=== PATIENT | female | born 1960 | race African-American/Black ===

== ENCOUNTER 2017-06-09 09:36 | Emergency (ER) | payer OTHER ==
[2017-06-09] MEDS ORDERED: MORPHINE SULFATE 4 MG/ML DISP.SYRIN. IV/SQ (10:00)
[2017-06-09] MEDS ORDERED: MORPHINE SULFATE 4 MG/ML DISP.SYRIN. (10:03)
[2017-06-09] MEDS: ORPHENADRINE CITRATE 60 MG/2 ML VIAL. IM (10:10)
[2017-06-09] MEDS: MORPHINE SULFATE 4 MG/ML DISP.SYRIN. IM (10:29)
== END 2017-06-09 12:30 | disposition home or self-care (01) ==
LOC: ER 09:36
DX: M62.838 Other muscle spasm (principal); E11.9 Type 2 diabetes mellitus without complications; I10 Essential (primary) hypertension
CPT/HCPCS: 93005; 96372; 99284-25; J2270; J2360

== ENCOUNTER 2020-06-30 17:23 | Emergency (ER) | payer SELFPAY ==
[~2020-06-30] VITALS: Ht 162.6 cm; Wt 97.0 kg
[~2020-06-30 17:23] MED LIST: ASPI-482 PO; ATEN100T PO; CHOL10003 PO; LISI1TAB20 PO; METF10007 PO; ORPH100T PO
[2020-06-30 17:50] LABS: BILIRUBIN,URINE NEGATIVE (NEG); CLARITY,URINE TURBID; COLOR,URINE YELLOW; NITRITE,URINE NEGATIVE (NEG); PROTEIN,URINE 100 mg/dL (NEG-TRACE)
[2020-06-30 18:09] LABS: AMORPHOUS SEDIMENT,UR PRESENT /HPF; BACTERIA,URINE MODERATE /HPF (0-FEW); WBC,URINE >40 /HPF (0-4)
[2020-06-30] MEDS ORDERED: IV NORMAL SALINE 1000ML BAG 1,000 ML IV SCH (18:30)
[2020-06-30] MEDS ORDERED: cefTRIAXone IV Push 1 GM VIAL. IVP ONE (18:30)
--- NOTE | 2020-06-30 18:34 | PHYS DOC ---
Past Medical History Past Medical History: Diabetes-Type II, Hypertension, Hypothyroid, Kidney Stone Past Surgical History: Other Additional Past Surgical Histo: right wrist cyst; partial thyroidectomy Smoking Status: Never Smoker Alcohol Use: None Drug Use: None General Adult EDM: Chief Complaint: PAIN ON URINATION HPI: HPI: Patient is a 60 year old female who presents with states a couple days ago began having abdominal burning with urination and pain and urinary frequency and dribbling of urine. She states she has no pain until she is trying to urinate. She states when she wiped she saw some pink on the toilet paper. Patient states that she broke out into a sweat a couple of times yesterday. Patient denies nausea, vomiting, diarrhea, fever, back pain, headache, dizziness, fall, con stipation, body aches, chest pain, shortness of air, visual changes or focal weaknesses. Patient has a history of diabetes, hypertension, high cholesterol, kidney stone, right wrist cyst, partial thyroidectomy. Right now denies any pain. Review of Systems: Review of Systems: Constitutional: Denies fever or chills. [] Eyes: Denies change in visual acuity. [] HENT: Denies nasal congestion or sore throat. [] Respiratory: Denies cough or shortness of breath. [] Cardiovascular: Denies chest pain or edema. [] GI: + Low mid abdominal pain urination, denies nausea, vomiting, bloody stools or diarrhea. [] : + dysuria. [] Musculoskeletal: Denies back pain or joint pain. [] Integument: Denies rash. + Cold sweats [] Neurologic: Denies headache, focal weakness or sensory changes. [] Endocrine: Denies polyuria or polydipsia. [] Lymphatic: Denies swollen glands. [] Psychiatric: Denies depression or anxiety. [] Heart Score: Risk Factors: Risk Factors: DM, Current or recent (<one month) smoker, HTN, HLP, family history of CAD, obesity. Risk Scores: Score 0 - 3: 2.5% MACE over next 6 weeks - Discharge Home Score 4 - 6: 20.3% MACE over next 6 weeks - Admit for Clinical Observation Score 7 - 10: 72.7% MACE over next 6 weeks - Early Invasive Strategies Current Medications: Current Medications Medications (Trade) Dose Ordered Sig/Santi Start Time Stop Time Status Last Admin Dose Admin Ceftriaxone Sodium (Rocephin) 1 gm 1X ONCE 06/30/20 18:30 06/30/20 18:31 Sodium Chloride 1,000 ml @ 1,000 mls/hr Q1H 06/30/20 18:30 06/30/20 19:29 Allergies: Allergies: Allergies Coded Allergies Type Severity Reaction Last Updated Verified No Known Drug Allergies 08/24/14 No Physical Exam: PE: Constitutional: Well developed, well nourished, no acute distress, non-toxic appearance. [] HENT: Normocephalic, atraumatic, bilateral external ears normal, oropharynx moist, no oral exudates, nose normal. [] Eyes: PERRLA, EOMI, conjunctiva normal, no discharge. [] Neck: Normal range of motion, no tenderness, supple, no stridor. [] Cardiovascular:Heart rate regular rhythm, no murmur [] Lungs & Thorax: Bilateral breath sounds clear to auscultation [] Abdomen: Bowel sounds normal, soft, no tenderness, no masses, no pulsatile masses. [] Skin: Warm, dry, no erythema, no rash. [] Back: No tenderness, no CVA tenderness. [] Extremities: No tenderness, no cyanosis, no clubbing, ROM intact, no edema. [] Neurologic: Alert and oriented X 3, normal motor function, normal sensory function, no focal deficits noted. [] Psychologic: Affect normal, judgement normal, mood normal. Normal physical exam [] Current Patient Data: Labs: Laboratory Tests Test 06/30/20 17:30 Urine Collection Type Unknown Urine Color Yellow Urine Clarity Turbid Urine pH 7.0 (<5.0-8.0) Urine Specific [place] 1.025 (1.000-1.030) Urine Protein 100 mg/dL (NEG-TRACE) Urine Glucose (UA) Negative mg/dL (NEG) Urine Ketones (Stick) Trace mg/dL (NEG) Urine Blood Large (NEG) Urine Nitrite Negative (NEG) Urine Bilirubin Negative (NEG) Urine Urobilinogen Dipstick 1.0 mg/dL (0.2 mg/dL) Urine Leukocyte Esterase Large (NEG) Urine RBC 3-5 /HPF (0-2) Urine WBC >40 /HPF (0-4) Urine Squamous Epithelial Cells Mod /LPF Urine Amorphous Sediment Present /HPF Urine Bacteria Moderate /HPF (0-FEW) Urine Mucus Slight /LPF Vital Signs: Vital Signs Date Time Temp Pulse Resp B/P (MAP) Pulse Ox O2 Delivery O2 Flow Rate FiO2 06/30/20 17:30 97.8 76 16 172/86 (114) 99 Room Air 97.8 EKG: EKG: [] Radiology/Procedures: Radiology/Procedures: [] Impression: [facility] [address] [place] [address] IMAGING REPORT Signed PATIENT: KRISTY ARMSTRONG ACCOUNT: [id number] : 1960 LOCATION: ER AGE: 60 SEX: F EXAM STATUS: REG ER ORD. PHYSICIAN: REBECA CAMPOS APRN REASON: UTI, HISTORY KIDNEY STONE, ABD PAIN PROCEDURE: CT ABDOMEN PELVIS WO CONTRAST EXAM: CT Abdomen and Pelvis without IV contrast CLINICAL HISTORY: UTI, HISTORY KIDNEY STONE, ABD PAIN COMPARISON: 04/16/2015 TECHNIQUE: Helical CT of the abdomen and pelvis without intravenous contrast. Axial, coronal and sagittal reformatted images were generated. PQRS compliance statement - One or more of the following individualized dose reduction techniques were utilized for this study: 1. Automated exposure control 2. Adjustment of the mA and/or kV according to patient size 3. Use of iterative reconstruction technique FINDINGS: Lack of intravenous contrast limits evaluation of solid organs, vasculature, and lymph nodes. Lower chest: Linear opacities in lower lobes likely scarring/atelectasis. Abdomen and Pelvis: Liver is enlarged measuring 21 cm in length. Gallbladder is unremarkable. Pancreas, spleen and right adrenal gland is unremarkable. Left adrenal nodule is grossly stable. No focal renal lesion. No hydronephrosis. No hydroureter. Diffuse bladder wall thickening and associated infiltration, likely cystitis. Appendix is normal. Colonic stool content is seen. No small or large bowel dilatation. No bowel obstruction. Bones: Symphysis pubis and SI joint degenerative changes are seen with subchondral sclerosis. Degenerative changes of lower lumbar spine are also seen. Grade 1 anterolisthesis of L4 on L5, likely degenerative. IMPRESSION: 1. Diffuse bladder wall thickening and infiltration likely cystitis and can be correlated with urinalysis. 2. Hepatomegaly. 3. Multifocal degenerative changes of the lumbar spine and pelvis. 4. Moderate colonic stool content. No bowel obstruction. Electronically signed by: Mejia Chew MD (06/30/2020 7:26 PM) [facility] DICTATED and SIGNED BY: MEJIA CHEW MD DATE: 06/30/20 [id number] 0 Course & Med Decision Making: Course & Med Decision Making Pertinent Labs and Imaging studies reviewed. (See chart for details) See HPI. Abdomen soft nontender. No CVA tenderness. Ambulatory with a steady gait. Skin pink warm and dry. Alert and oriented x4. Speaks in full clear sentences. Afebrile. Urinalysis shows infection. Patient will be given Rocephin through an IV and IV fluids. Blood work is stable. Patient will be placed on Keflex and she can follow-up with her primary care provider soon as possible. [] Dragon Disclaimer: Dragon Disclaimer: This electronic medical record was generated, in whole or in part, using a voice recognition dictation system. Departure Departure Impression: Primary Impression: Urinary tract infection Qualified Codes: N30.01 - Acute cystitis with hematuria Additional Impression: Constipation Qualified Codes: K59.00 - Constipation, unspecified Disposition: DC HOME SELF CARE/HOMELESS Condition: STABLE Referrals: NO PCP (PCP) Patient Instructions: Constipation, Adult, Urinary Tract Infection Additional Instructions: Follow up with primary care provider soon as possible. Drink plenty of fluids. Take medication with food and as prescribed. If Began running a fever or cannot keep any fluids down return sooner. Scripts Phenazopyridine Hcl (PYRIDIUM) 100 Mg Tablet 1 TAB PO TID for urinary discomfort for 3 Days, #9 TAB 0 Refills Prov: [facility] 06/30/20 Cephalexin (CEPHALEXIN) 500 Mg Capsule 1 CAP PO BID, #20 CAP Prov: [facility] 06/30/20 REBECA CAMPOS APRN Jun 30, 2020 18:34
[2020-06-30 18:43] LABS: BASO % 1 % (0-3); EOS # 0.1 x10^3/uL (0.0-0.7); EOS % 2 % (0-3); HEMATOCRIT 35.1 % (36.0-47.0); HEMOGLOBIN 12.2 g/dL (12.0-15.5); LYMPH # 1.3 x10^3/uL (1.0-4.8); LYMPH % 24 % (24-48); MEAN CORPUSCULAR HEMOGLOBIN 32 pg (25-35); MEAN CORPUSCULAR HGB CONC 35 g/dL (31-37); MEAN CORPUSCULAR VOLUME 91 fL (79-100); MONO # 0.4 x10^3/uL (0.0-1.1); MONO % 7 % (0-9); NEUT # 3.6 x10^3/uL (1.8-7.7); NEUT % 67 % (31-73); PLATELET COUNT 305 x10^3/uL (140-400); RED BLOOD COUNT 3.86 x10^6/uL (3.50-5.40); RED CELL DISTRIBUTION WIDTH 13.1 % (11.5-14.5); WHITE BLOOD COUNT 5.4 x10^3/uL (4.0-11.0)
[2020-06-30 18:53] LABS: CALCIUM 8.8 mg/dL (8.5-10.1); CREATININE 0.8 mg/dL (0.6-1.0); GFR 88.2; POTASSIUM 3.2 mmol/L (3.5-5.1)
[2020-06-30 18:59] LABS: ALBUMIN 2.9 g/dL (3.4-5.0); ALBUMIN/GLOBULIN RATIO 0.6 (1.0-1.7); TOTAL BILIRUBIN 0.3 mg/dL (0.2-1.0); TOTAL PROTEIN 7.4 g/dL (6.4-8.2)
--- NOTE | 2020-06-30 19:28 | RAD ---
EXAM: CT Abdomen and Pelvis without IV contrast CLINICAL HISTORY: UTI, HISTORY KIDNEY STONE, ABD PAIN COMPARISON: 04/16/2015 TECHNIQUE: Helical CT of the abdomen and pelvis without intravenous contrast. Axial, coronal and sagi ttal reformatted images were generated. PQRS compliance statement - One or more of the following individualized dose reduction techniques wer e utilized for this study: 1. Automated exposure control 2. Adjustment of the mA and/or kV according to patient size 3. Use of iterative reconstruction technique FINDINGS: Lack of intravenous contrast limits evaluation of solid organs, vasculature, and lymph nodes. Lower chest: Linear opacities in lower lobes likely scarring/atelectasis. Abdomen and Pelvis: Liver is enlarged measuring 21 cm in length. Gallbladder is unremarkable. Pancreas, spleen and right adrenal gland is unremarkable. Left adrenal nodule is grossly stable. No focal renal lesion. No hydronephrosis. No hydroureter. Diffuse bladder wall thickening and associa kylie infiltration, likely cystitis. Appendix is normal. Colonic stool content is seen. No small or large bowel dilatation. No bowel obstr uction. Bones: Symphysis pubis and SI joint degenerative changes are seen with subchondral sclerosis. Degenerative c hanges of lower lumbar spine are also seen. Grade 1 anterolisthesis of L4 on L5, likely degenerative. IMPRESSION: 1. Diffuse bladder wall thickening and infiltration likely cystitis and can be correlated with urina lysis. 2. Hepatomegaly. 3. Multifocal degenerative changes of the lumbar spine and pelvis. 4. Moderate colonic stool content. No bowel obstruction. Electronically signed by: Mejia Chew MD (06/30/2020 7:26 PM) KEISHA
[2020-06-30] MEDS ORDERED: CEPH500C PO (19:38)
[2020-06-30] MEDS ORDERED: PHEN100T82 PO (19:38)
[2020-06-30 20:03] VITALS: BP 127/57
== END 2020-06-30 20:35 | disposition home or self-care (01) ==
LOC: ER 17:23
DX: N30.01 Acute cystitis with hematuria (principal); K59.00 Constipation, unspecified; E11.9 Type 2 diabetes mellitus without complications; I10 Essential (primary) hypertension; E03.9 Hypothyroidism, unspecified; Z87.442 Personal history of urinary calculi
CPT/HCPCS: 36415; 74176; 80053; 81001; 85025; 87086; 96361; 96374; 99285; J0696; J7030

== ENCOUNTER 2021-02-21 12:50 | Emergency (ER) | payer OTHER ==
[~2021-02-21] VITALS: Ht 162.6 cm; Wt 120.3 kg
[~2021-02-21 12:50] MED LIST changes: +CEPH500C PO; +PHEN100T82 PO
[2021-02-21 13:38] VITALS: BP 186/96
[2021-02-21 14:32] LABS: BILIRUBIN,URINE NEGATIVE (NEG); CLARITY,URINE CLOUDY; COLOR,URINE YELLOW; NITRITE,URINE POSITIVE (NEG); PROTEIN,URINE 100 mg/dL (NEG-TRACE); UROBILINOGEN,URINE 0.2 mg/dL (0.2 mg/dL)
[2021-02-21 14:46] LABS: BACTERIA,URINE MANY /HPF (0-FEW); WBC,URINE TNTC /HPF (0-4)
--- NOTE | 2021-02-21 21:26 | PHYS DOC ---
Past Medical History Past Medical History: Diabetes-Type II, Hypertension, Hypothyroid, Kidney Stone Past Surgical History: Other Additional Past Surgical Histo: right wrist cyst; partial thyroidectomy Smoking Status: Never Smoker Alcohol Use: None Drug Use: None General Adult EDM: Chief Complaint: PAIN ON URINATION HPI: HPI: Patient is a 60 year old [f__sex] who presents with [] Review of Systems: Review of Systems: Constitutional: Denies fever or chills. [] Eyes: Denies change in visual acuity. [] HENT: Denies nasal congestion or sore throat. [] Respiratory: Denies cough or shortness of breath. [] Cardiovascular: Denies chest pain or edema. [] GI: Denies abdominal pain, nausea, vomiting, bloody stools or diarrhea. [] : Denies dysuria. [] Musculoskeletal: Denies back pain or joint pain. [] Integument: Denies rash. [] Neurologic: Denies headache, focal weakness or sensory changes. [] Endocrine: Denies polyuria or polydipsia. [] Lymphatic: Denies swollen glands. [] Psychiatric: Denies depression or anxiety. [] Heart Score: Risk Factors: Risk Factors: DM, Current or recent (<one month) smoker, HTN, HLP, family history of CAD, obesity. Risk Scores: Score 0 - 3: 2.5% MACE over next 6 weeks - Discharge Home Score 4 - 6: 20.3% MACE over next 6 weeks - Admit for Clinical Observation Score 7 - 10: 72.7% MACE over next 6 weeks - Early Invasive Strategies Allergies: Allergies: Allergies Coded Allergies Type Severity Reaction Last Updated Verified sulfamethoxazole Allergy Unknown 06/30/20 Yes trimethoprim Allergy Unknown 06/30/20 Yes Physical Exam: PE: Constitutional: Well developed, well nourished, no acute distress, non-toxic appearance. [] HENT: Normocephalic, atraumatic, bilateral external ears normal, oropharynx moist, no oral exudates, nose normal. [] Eyes: PERRLA, EOMI, conjunctiva normal, no discharge. [] Neck: Normal range of motion, no tenderness, supple, no stridor. [] Cardiovascular:Heart rate regular rhythm, no murmur [] Lungs & Thorax: Bilateral breath sounds clear to auscultation [] Abdomen: Bowel sounds normal, soft, no tenderness, no masses, no pulsatile masses. [] Skin: Warm, dry, no erythema, no rash. [] Back: No tenderness, no CVA tenderness. [] Extremities: No tenderness, no cyanosis, no clubbing, ROM intact, no edema. [] Neurologic: Alert and oriented X 3, normal motor function, normal sensory function, no focal deficits noted. [] Psychologic: Affect normal, judgement normal, mood normal. [] Current Patient Data: Labs: Laboratory Tests Test 02/21/21 13:45 Urine Collection Type Unknown Urine Color Yellow Urine Clarity Cloudy Urine pH 7.0 (<5.0-8.0) Urine Specific [place] 1.025 (1.000-1.030) Urine Protein 100 mg/dL (NEG-TRACE) Urine Glucose (UA) Negative mg/dL (NEG) Urine Ketones (Stick) Negative mg/dL (NEG) Urine Blood Large (NEG) Urine Nitrite Positive (NEG) Urine Bilirubin Negative (NEG) Urine Urobilinogen Dipstick 0.2 mg/dL (0.2 mg/dL) Urine Leukocyte Esterase Large (NEG) Urine RBC 6-10 /HPF (0-2) Urine WBC Tntc /HPF (0-4) Urine Squamous Epithelial Cells Mod /LPF Urine Bacteria Many /HPF (0-FEW) Urine Mucus Slight /LPF Vital Signs: Vital Signs Date Time Temp Pulse Resp B/P (MAP) Pulse Ox O2 Delivery O2 Flow Rate FiO2 02/21/21 13:38 97.8 82 12 186/96 (126) 99 Room Air 97.8 EKG: EKG: [] Radiology/Procedures: Radiology/Procedures: [] Course & Med Decision Making: Course & Med Decision Making Pertinent Labs and Imaging studies reviewed. (See chart for details) [] Dragon Disclaimer: Dragon Disclaimer: This electronic medical record was generated, in whole or in part, using a voice recognition dictation system. Departure Departure Referrals: NO PCP (PCP) JODIE SKINNER DO Feb 21, 2021 21:26
--- NOTE | 2021-02-25 16:48 | VNOTE ---
CALL BACK NOTE CALL BACK Microbiology 02/21/21 Urine Culture - Final, Complete 02/21/21 Antimicrobic Susceptibility - Final, Complete Patient was contacted 02/24/2021 at 1236 to notify her that her urine sample culture came back positive for UTI. I informed her she should seek treatment either with her primary care provider, urgent care or return to the department. We are unable to prescribe, as she was not seen here in the department. Patient acknowledged and understood, and stated she would see urgent care when she got off work. TONE FRASER Feb 25, 2021 16:47
== END 2021-02-21 19:00 | disposition left against medical advice (07) ==
LOC: ER 12:50
DX: R30.0 Dysuria (principal); Z53.21 Procedure and treatment not carried out due to patient leaving prior to being seen by health care provider
CPT/HCPCS: 81001; 87077; 87086; 87186